=== PATIENT | female | born 1985 | race Caucasian/White ===

== ENCOUNTER → 2018-08-04 | Outpatient (CLI) | payer OTHER, MEDICAID ==
[2016-03-12 14:57] VITALS: BP 139/75
[~2018-08-04] MED LIST: ALPR0.5T6 PO; DIVA500T2 PO; TRAM50TA PO
--- NOTE | 2018-08-04 15:52 | KCIC ---
EXAM: Pelvis and left hip, 3 views; right elbow, 3 views. HISTORY: Pain. COMPARISON: None. FINDINGS: Pelvis and left hip: A frontal view the pelvis and frontal and frog-leg views left hip are obtained. There is no fracture, dislocation or subluxation. The left femoral head is normal in configuration and seated appropriately. Right elbow: 3 views of the right elbow are obtained. There is no fracture, dislocation or subluxation. There is no joint effusion. IMPRESSION: No acute osseous finding. Electronically signed by: Brooklyn Klein MD (08/04/2018 3:49 PM) [place] [id number]
== END | disposition home or self-care (01) ==
LOC: KCIC 15:05
PROVIDERS: ATTEND Nurse Practitioner Family
DX: M25.552 Pain in left hip (principal); M25.521 Pain in right elbow
CPT/HCPCS: 73080; 73502

== ENCOUNTER → 2019-02-08 | Outpatient (CLI) | payer OTHER, MEDICAID ==
[2016-03-12 14:57] VITALS: BP 139/75
--- NOTE | 2019-02-08 14:26 | KCIC ---
Bilateral diagnostic digital mammograms: Reason for examination: Follow-up breast nodules. Comparison is made to previous study dated 08/07/2018. Interpretation was made with the benefit of CAD. The skin and nipples show no abnormalities. No abnormal axillary lymph nodes are seen. The breast parenchyma is heterogeneously dense. (Breast density: Category C.) There continues to be a nodular density in the 2:00 B position of the right breast. There are no other dominant masses, suspicious calcifications or architectural distortion. Impression: Continued presence of the small nodule at the 2:00 B position of the right breast. No definite nodule seen in the left breast. If left nipple discharge persists, further evaluation with galactography should be considered. Right breast ultrasound: Comparison is made to previous study dated 08/12/2018. Ultrasound examination was performed in the areas of previous concern and the axilla. At the 2:00 position 6 cm from the nipple, there continues to be septated cystic lesion measuring 8.4 mm in greatest dimension which shows a slight increase in size. There is a small 3.5 mm hypoechoic fibrocystic type lesion in the 2:00 position 4 cm from the nipple which is also probably slightly larger than on previous exam. There also continues to be a septated cystic lesion at the 10:00 position 5 cm from the nipple measuring 1 cm in greatest dimension which shows no significant change. There are no new cystic or solid nodules. No abnormal appearing lymph nodes are seen in the axilla. IMPRESSION: Continued presence of benign-appearing fibrocystic lesions at the 2:00 and 10:00 positions. Recommend continued 6 month sonographic follow-up at the time of bilateral mammograms. Your patient's mammogram demonstrates that she has dense breast tissue (breast density category C or D), which could hide abnormalities, and if she has other risk factors for breast cancer that have been identified, she might benefit from supplemental screening tests that may be suggested by you as her ordering physician. Dense breast tissue, in and of itself, is a relatively common condition. Therefore, this information is not provided to cause undue concern, but rather to raise your awareness and to promote discussion with your patient regarding the presence of other risk factors, in addition to dense breast tissue. Your patient's mammography results will be sent to her. BI-RAD Category 3: Probably benign. "Our facility is accredited by the [employer] Mammography Program." This patient's information has been entered into a reminder system for the patient to be notified with the results of her examination and a target date for the next mammogram. Electronically signed by: Lesvia Dowling MD (02/08/2019 2:23 PM) [id number]
== END | disposition home or self-care (01) ==
LOC: KCIC MAMMO 12:44
PROVIDERS: ATTEND Nurse Practitioner Family
DX: N64.52 Nipple discharge (principal); R92.2 Inconclusive mammogram
CPT/HCPCS: 76641; 77066

== ENCOUNTER → 2019-05-27 | Outpatient (CLI) | payer OTHER, MEDICAID ==
[2016-03-12 14:57] VITALS: BP 139/75
--- NOTE | 2019-05-27 13:34 | KCIC ---
EXAM: Abdomen sonogram. HISTORY: Right upper quadrant pain. TECHNIQUE: Sonographic imaging of the abdomen was performed. COMPARISON: None. FINDINGS: The liver is normal in size. There is hepatic steatosis. No focal hepatic lesion is seen. The common bile duct is normal in caliber. The gallbladder is unremarkable. The right kidney is unremarkable. The pancreatic tail, inferior vena cava and aorta are are partially obscured due to bowel gas. IMPRESSION: 1. Hepatic steatosis. 2. Partially obscured midline structures due to bowel gas. Electronically signed by: Brooklyn Klein MD (05/27/2019 1:31 PM) [facility]
== END | disposition home or self-care (01) ==
LOC: KCIC US 12:44
PROVIDERS: ATTEND Nurse Practitioner Family
DX: K76.0 Fatty (change of) liver, not elsewhere classified (principal)
CPT/HCPCS: 76705

== ENCOUNTER → 2019-07-16 | Outpatient (CLI) | payer MEDICARE, MEDICAID ==
[2016-03-12 14:57] VITALS: BP 139/75
--- NOTE | 2019-07-16 13:00 | KCIC ---
Right breast ultrasound: Reason for examination: Follow-up nodules. Comparison is made to previous studies dated 02/08/2019 and 08/12/2018. Ultrasound examination of the right breast and axilla was performed. At the 10:00 position 5 cm from the nipple, there continues to be 9.5 mm hypoechoic fibrocystic lesion which has shown a slight decrease in size. At the 2:00 position 6 cm from the nipple, there continues to be 6.5 mm hypoechoic fibrocystic lesion which is stable. At the 2:00 position 4 cm from the nipple, there continues to be a small 4 mm fibrocystic lesion which is stable. No suspicious-appearing nodules are seen. No abnormal appearing lymph nodes are seen in the axilla. IMPRESSION: Continued presence of benign-appearing fibrocystic lesions which are stable. No suspicious lesions are seen. Recommend routine mammographic follow-up. BI-RADS Category 2: Benign. "Our facility is accredited by the [employer] Mammography Program." This patient's information has been entered into a reminder system for the patient to be notified with the results of her examination and a target date for the next mammogram. Electronically signed by: Lesvia Dowling MD (07/16/2019 12:57 PM) [id number]
== END | disposition home or self-care (01) ==
LOC: KCIC US 09:03
PROVIDERS: ATTEND Nurse Practitioner Family
DX: N64.89 Other specified disorders of breast (principal)
CPT/HCPCS: 76641

== ENCOUNTER → 2019-11-10 | Outpatient (CLI) | payer MEDICARE, MEDICAID ==
[2016-03-12 14:57] VITALS: BP 139/75
--- NOTE | 2019-11-10 18:06 | CARD ---
MR#: [id number] Date of Study: 11/10/2019 Ordering Physician: JANELLE SIDHU, Referring Physician: JANELLE SIDHU, Tech: April Shelley APPROVED REPORT INDICATION Chest Pain RISK FACTORS Smoking Reason : Patient complained of pain PROCEDURE The patient underwent an Exercise Stress Test using the Carter Protocol. Blood pressure, heart rate, a nd EKG were monitored. An Echocardiogram was performed by screening technician in four stages in quad fashion. At peak stress four se lected images were obtained and placed side by side with resting images for comparison. STRESS ECHO FINDINGS The resting Echocardiogram showed normal left ventricular systolic contractility with an estimated Ej ection Fraction of about 55 %. The Resting Echocardiogram showed normal augmentation of myocardial wall segments using a 16 segment model. The Stress Echocardiogram showed normal augmentation of myocardial wall segments using a 16 segment m carmel. The Stress Echocardiogram left ventricular systolic contractility has an estimated Ejection Fraction of about 70%. Test Type: Exercise Stress Nurse/Tech: Ninoska Little RN Test Indications: Chest pain Cardiac History and Allergies: Family history,smoker Medications: see EMR Medical History: see EMR Resting ECG: SR Resting Heart Rate: 77 bpm Resting Blood Pressure: 115/61mmHg Pretest Chest Pain: Atypical anginaTypical angina Nurse/Tech Notes S1,S2 and lungs clear to auscultation. Stress Symptoms Dyspnea,Fatigue, patient stated she has persistent chest pressure/tightness and "heart hiccups" (best way she can describe it). POST EXERCISE Reason for Termination: Reached target heart rate, Fatigue Target HR: Yes Max HR: 185 bpm 101% of Maximum Predicted HR: 184 bpm Exercise duration: 5:53 min:sec, Stage Exercise capacity: 7.0METs Max Blood Pressure: 152/53mmHg Blood Pressure response to exercise: Normal blood pressure response during stress. Heart Rate response to exercise: WNL Chest Pain: Yes. see note above Arrhythmia: No. ST Change: Yes. ST changes in II,III,aVF and V3-V6 with stress which returned to baseline by end of s tudy STRESS ECG Stress EKG shows no significant changes. Preliminary Notification Critical Value: No <Conclusion> Normal resting EKG Normal stress EKG Adequate exercise capacity at 7.0 Mets Normal resting echocardiogram EF 55% Normal stress echocardiogram. EF > 70% Signed by : Federico Rao, Electronically Approved : 11/10/2019 18:06:29
== END | disposition home or self-care (01) ==
LOC: ECHO 12:59
PROVIDERS: ATTEND Internal Medicine Cardiovascular Disease
DX: R07.9 Chest pain, unspecified (principal)
CPT/HCPCS: 93017; 93350

== ENCOUNTER → 2020-04-26 | Outpatient (CLI) | payer MEDICARE, MEDICAID ==
[2016-03-12 14:57] VITALS: BP 139/75
--- NOTE | 2020-04-26 10:11 | RAD ---
Examination: MG DIGITAL BILAT DIAGNOSTIC MAMMO WITH ALYSE History: RIGHT BREAST NODULE described on previous exam. No new palpable abnormality in the past one year. Comparison/Correlation: 02/08/2019, 08/07/2018 Technique: Bilateral digital diagnostic mammogram views were obtained. CAD was utilized. 3-D tomosyn thesis images were acquired. Findings: Breast Tissue Density C : The breasts are heterogeneously dense, which may obscure small masses. There are no dominant masses, suspicious microcalcifications, or architectural distortion. Mass at t he inner aspect of the right breast corresponding to previously demonstrated cyst on ultrasound exams is stable. No new findings in the interval. IMPRESSION: No mammographic evidence of malignancy. Recommend routine screening. Patient reports having a sister diagnosed with breast cancer at age of 37. If the patient has lifetime risk of greater than 20 percen t, annual screening MRI of the breasts beginning 6 months from now would be recommended if able. BI-RADS category 1: Negative. The images were reviewed with computer aided detection. Patient information is entered into the reminder system with a target due date for the next screening mammogram. Mammography is the most sensitive method for finding small breast cancers, but it does not detect the m all and is not a substitute for careful clinical examination. A negative mammogram does not negate a clinically suspicious finding and should not result in delay in biopsying a clinically suspicious a bnormality. "Our facility is accredited by the [employer] Mammography Program." Electronically signed by: Jose House MD (04/26/2020 10:08 AM) [email or web address]
== END ==
LOC: MAMMO 08:58
PROVIDERS: ATTEND Nurse Practitioner Family
DX: R92.2 Inconclusive mammogram (principal); N63.10 Unspecified lump in the right breast, unspecified quadrant
CPT/HCPCS: 77066; G0279; 77062

== ENCOUNTER → 2020-06-14 | Outpatient (CLI) | payer MEDICARE, MEDICAID ==
[2016-03-12 14:57] VITALS: BP 139/75
--- NOTE | 2020-06-14 09:19 | KCIC ---
Study: XR CHEST 2V Indication: Shortness of air. Comparison: None. Findings: PA and lateral radiographic views of the chest. The cardiomediastinal silhouette is unremarkable. Symmetric girish. No confluent airspace infiltrate, p leural effusion or pneumothorax. Within normal limits lung volumes, AP dimension of the chest on the lateral view and convexity of the diaphragm. Grossly intact osseous structures. No free air under the diaphragm. Impression: Unremarkable radiographic appearance of the chest. Electronically signed by: CHRISTIANA NIXON MD (06/14/2020 9:17 AM) [id number]
== END ==
LOC: KCIC 08:53
PROVIDERS: ATTEND Nurse Practitioner Family
DX: R06.02 Shortness of breath (principal); F17.200 Nicotine dependence, unspecified, uncomplicated; Z82.5 Family history of asthma and other chronic lower respiratory diseases
CPT/HCPCS: 71046

== ENCOUNTER 2021-03-18 06:10 | Emergency (ER) | payer MEDICARE, MEDICAID ==
[~2021-03-18] VITALS: Ht 154.9 cm; Wt 81.8 kg
--- NOTE | 2021-03-18 07:02 | ED.ADGEN ---
Past Medical History Past Medical History: Anxiety, Bipolar, Seizure Past Surgical History: Hysterectomy Smoking Status: Former Smoker Alcohol Use: None Drug Use: None General Adult EDM: Chief Complaint: NECK PAIN HPI: HPI: Patient is a 36 year old female coming in from home for right-sided neck pain. Patient that she was sleeping on her back when she woke up and felt like there had been a pop but had severe right-sided neck pain. Denies any trauma or history of previous episodes. Took ibuprofen prior to arrival. Denies any weakness or paresthesias in right arm. Chest pain is worst at the upper part of the posterior right side of her neck Review of Systems: Review of Systems: All other systems within normal limits except for as noted in the HPI Current Medications: Current Medications Medications (Trade) Dose Ordered Sig/Oxana Start Time Stop Time Status Last Admin Dose Admin Fentanyl Citrate (Fentanyl 2ml Vial) 75 mcg 1X ONCE 03/18/21 07:15 03/18/21 07:16 DC 03/18/21 08:00 75 MCG Iohexol (Omnipaque 300 Mg/ml) 75 ml 1X ONCE 03/18/21 07:15 03/18/21 07:16 DC 03/18/21 08:22 75 ML Allergies: Allergies: Allergies Coded Allergies Type Severity Reaction Last Updated Verified No Known Drug Allergies 01/08/16 No Physical Exam: PE: Constitutional: Well developed, well nourished, no acute distress, non-toxic appearance. [] HENT: Normocephalic, atraumatic, bilateral external ears normal, oropharynx moist, no oral exudates, nose normal. [] Eyes: PERRLA, EOMI, conjunctiva normal, no discharge. [] Neck: Normal range of motion, no tenderness, supple, no stridor. [] Cardiovascular:Heart rate regular rhythm, no murmur [] Lungs & Thorax: Bilateral breath sounds clear to auscultation [] Abdomen: Bowel sounds normal, soft, no tenderness, no masses, no pulsatile masses. [] Skin: Warm, dry, no erythema, no rash. [] Back: No tenderness, no CVA tenderness. [] Extremities: No tenderness, no cyanosis, no clubbing, ROM intact, no edema. [] Neurologic: Alert and oriented X 3, normal motor function, normal sensory function, no focal deficits noted. [] Psychologic: Affect normal, judgement normal, mood normal. [] Current Patient Data: Labs: Laboratory Tests Test 03/18/21 07:50 White Blood Count 6.4 x10^3/uL (4.0-11.0) Red Blood Count 4.45 x10^6/uL (3.50-5.40) Hemoglobin 13.4 g/dL (12.0-15.5) Hematocrit 39.5 % (36.0-47.0) Mean Corpuscular Volume 89 fL (79-100) Mean Corpuscular Hemoglobin 30 pg (25-35) Mean Corpuscular Hemoglobin Concent 34 g/dL (31-37) Red Cell Distribution Width 14.0 % (11.5-14.5) Platelet Count 302 x10^3/uL (140-400) Neutrophils (%) (Auto) 78 % (31-73) H Lymphocytes (%) (Auto) 13 % (24-48) L Monocytes (%) (Auto) 8 % (0-9) Eosinophils (%) (Auto) 0 % (0-3) Basophils (%) (Auto) 0 % (0-3) Neutrophils # (Auto) 5.0 x10^3/uL (1.8-7.7) Lymphocytes # (Auto) 0.9 x10^3/uL (1.0-4.8) L Monocytes # (Auto) 0.5 x10^3/uL (0.0-1.1) Eosinophils # (Auto) 0.0 x10^3/uL (0.0-0.7) Basophils # (Auto) 0.0 x10^3/uL (0.0-0.2) Sodium Level 137 mmol/L (136-145) Potassium Level 4.2 mmol/L (3.5-5.1) Chloride Level 103 mmol/L (98-107) Carbon Dioxide Level 23 mmol/L (21-32) Anion Gap 11 (6-14) Blood Urea Nitrogen 8 mg/dL (7-20) Creatinine 0.6 mg/dL (0.6-1.0) Estimated GFR (Cockcroft-Gault) 111.9 BUN/Creatinine Ratio 13 (6-20) Glucose Level 108 mg/dL (70-99) H Calcium Level 8.2 mg/dL (8.5-10.1) L Total Bilirubin 0.2 mg/dL (0.2-1.0) Aspartate Amino Transferase (AST) 18 U/L (15-37) Alanine Aminotransferase (ALT) 25 U/L (14-59) Alkaline Phosphatase 98 U/L (46-116) Total Protein 7.7 g/dL (6.4-8.2) Albumin 3.7 g/dL (3.4-5.0) Albumin/Globulin Ratio 0.9 (1.0-1.7) L Laboratory Tests 03/18/21 07:50 Laboratory Tests 03/18/21 07:50 Vital Signs: Vital Signs Date Time Temp Pulse Resp B/P (MAP) Pulse Ox O2 Delivery O2 Flow Rate FiO2 03/18/21 08:00 16 97 Room Air 03/18/21 06:38 98.2 95 135/90 (105) 98.2 EKG: EKG: [] Heart Score: C/O Chest Pain: No Risk Factors: Risk Factors: DM, Current or recent (<one month) smoker, HTN, HLP, family history of CAD, obesity. Risk Scores: Score 0 - 3: 2.5% MACE over next 6 weeks - Discharge Home Score 4 - 6: 20.3% MACE over next 6 weeks - Admit for Clinical Observation Score 7 - 10: 72.7% MACE over next 6 weeks - Early Invasive Strategies Radiology/Procedures: Radiology/Procedures: [facility] [address] [place] [address] IMAGING REPORT Signed PATIENT: ANDREW FELDMAN ACCOUNT: [id number] : 1985 LOCATION: ER AGE: 36 SEX: F EXAM STATUS: REG ER ORD. PHYSICIAN: ANDREW YOUNG MD REASON: right neck pain PROCEDURE: CT ANGIOGRAPHY NECK INDICATION: Reason: right neck pain / Spl. Instructions: / History: COMPARISON: None. TECHNIQUE: Axial CT images obtained through the neck arterial vasculature with intravenous contrast. 3D images were processed per protocol. Estimates of carotid stenosis based on criteria that correlates with NASCET. One or more of the following individualized dose reduction techniques were utilized for this examination: 1. Automated exposure control; 2. Adjustment of the mA and/or kV according to patient size; 3. Use of iterative reconstruction technique. FINDINGS: Neck Angio: No significant malalignment within the cervical spine. No prevertebral fluid collection. Epiglottis is not enlarged. Mild wedging of the T1 vertebral body. Mild degenerative changes spine. Bilateral vertebral arteries are patent. Dominant left vertebral artery. There are some scattered prominent lymph nodes in the neck. For example anterior to the internal carotid artery at the C2-3 level measuring approximately 10 x 12 mm. There are several additional scattered prominent lymph nodes. Bilateral common and internal carotid arteries are patent. Proximal external carotid arteries are patent. IMPRESSION: Patent vertebral and carotid system bilaterally. Scattered prominent lymph nodes within the neck. Electronically signed by: Jennifer Curiel MD (03/18/2021 8:47 AM) [id number] DICTATED and SIGNED BY: JENNIFER CURIEL MD DATE: 03/18/21 [id number] [] Course & Med Decision Making: Course & Med Decision Making Pertinent Labs and Imaging studies reviewed. (See chart for details) [] Dragon Disclaimer: Dragon Disclaimer: This electronic medical record was generated, in whole or in part, using a voice recognition dictation system. Departure Departure Impression: Primary Impression: Neck pain Disposition: HOME / SELF CARE / HOMELESS Condition: STABLE Referrals: GANESH LEPE APRN (PCP) Patient Instructions: Muscle Cramps, [id number] Scripts Cyclobenzaprine Hcl (CYCLOBENZAPRINE HCL) 10 Mg Tablet 1 TAB PO TID PRN for MUSCLE PAIN for 5 Days, #15 TAB Prov: ANDREW YOUNG MD 03/18/21 Meloxicam (MELOXICAM) 15 Mg Tablet 1 TAB PO DAILY PRN for PAIN for 10 Days, #10 TAB 0 Refills Prov: ANDREW YOUNG MD 03/18/21 ANDREW YOUNG MD Mar 18, 2021 07:02
[2021-03-18] MEDS ORDERED: fentaNYL PF VIAL 100 MCG/2 ML VIAL IVP ONE (07:15)
[2021-03-18] MEDS ORDERED: IOHEXOL 300 MG/ML 100ML VIAL. IV ONE (07:15)
[2021-03-18 08:19] LABS: CALCIUM 8.2 mg/dL (8.5-10.1); CREATININE 0.6 mg/dL (0.6-1.0); GFR 111.9; POTASSIUM 4.2 mmol/L (3.5-5.1)
[2021-03-18 08:20] LABS: BASO % 0 % (0-3); EOS % 0 % (0-3); HEMATOCRIT 39.5 % (36.0-47.0); HEMOGLOBIN 13.4 g/dL (12.0-15.5); LYMPH # 0.9 x10^3/uL (1.0-4.8); LYMPH % 13 % (24-48); MEAN CORPUSCULAR HEMOGLOBIN 30 pg (25-35); MEAN CORPUSCULAR HGB CONC 34 g/dL (31-37); MEAN CORPUSCULAR VOLUME 89 fL (79-100); MONO # 0.5 x10^3/uL (0.0-1.1); MONO % 8 % (0-9); NEUT % 78 % (31-73); PLATELET COUNT 302 x10^3/uL (140-400); RED BLOOD COUNT 4.45 x10^6/uL (3.50-5.40); WHITE BLOOD COUNT 6.4 x10^3/uL (4.0-11.0)
[2021-03-18 08:24] LABS: ALBUMIN 3.7 g/dL (3.4-5.0); ALBUMIN/GLOBULIN RATIO 0.9 (1.0-1.7); TOTAL BILIRUBIN 0.2 mg/dL (0.2-1.0); TOTAL PROTEIN 7.7 g/dL (6.4-8.2)
--- NOTE | 2021-03-18 08:50 | RAD ---
INDICATION: Reason: right neck pain / Spl. Instructions: / History: COMPARISON: None. TECHNIQUE: Axial CT images obtained through the neck arterial vasculature with intravenous contrast. 3D images were processed per protocol. Estimates of carotid stenosis based on criteria that correlates with NASCET. One or more of the following individualized dose reduction techniques were utilized for this examinat ion: 1. Automated exposure control; 2. Adjustment of the mA and/or kV according to patient size; 3 . Use of iterative reconstruction technique. FINDINGS: Neck Angio: No significant malalignment within the cervical spine. No prevertebral fluid collection. Epiglottis is not enlarged. Mild wedging of the T1 vertebral body. Mild degenerative changes spine. Bilateral vertebral arteries are patent. Dominant left vertebral artery. There are some scattered prominent lymph nodes in the neck. For example anterior to the internal waterman tid artery at the C2-3 level measuring approximately 10 x 12 mm. There are several additional scatter ed prominent lymph nodes. Bilateral common and internal carotid arteries are patent. Proximal external carotid arteries are patent. IMPRESSION: Patent vertebral and carotid system bilaterally. Scattered prominent lymph nodes within the neck. Electronically signed by: Francisco Gomez MD (03/18/2021 8:47 AM) [id number]
[2021-03-18] MEDS ORDERED: ORPHENADRINE CITRATE 60 MG/2 ML VIAL. IM ONE (09:00)
[2021-03-18] MEDS ORDERED: MELO15TA23 PO (09:00)
[2021-03-18] MEDS ORDERED: KETOROLAC 15 MG/ML VIAL. IVP ONE (09:00)
[2021-03-18] MEDS ORDERED: CYCL10TA19 PO (09:00)
[2021-03-18 09:24] VITALS: BP 116/71
== END 2021-03-18 09:38 | disposition home or self-care (01) ==
LOC: ER 06:10
DX: M54.2 Cervicalgia (principal); F31.9 Bipolar disorder, unspecified; Z87.891 Personal history of nicotine dependence
CPT/HCPCS: 36415; 70498; 80053; 85025; 96372; 96374; 96375; 99285; J1885; J2360; J3010; Q9967; 99284-25

== ENCOUNTER → 2021-05-01 | Outpatient (CLI) | payer MEDICARE, MEDICAID ==
[~2021-05-01] MED LIST changes: +CYCL10TA19 PO; +MELO15TA23 PO
--- NOTE | 2021-05-01 11:19 | RAD ---
INDICATION: 36 years of age asymptomatic female patient presents for screening mammography. . TECHNIQUE: Full field craniocaudal and mediolateral oblique images of both breasts were obtained usi ng digital technique with tomosynthesis and also analyzed with computer-aided detection software. . COMPARISON: 08/07/2018 04/26/2020 .. BREAST COMPOSITION: Category C: The breast tissue is heterogeneously dense, which could obscure detec tion of small masses. FINDINGS: No suspicious mass or clustered microcalcifications. No architectural distortion. There is a small ci rcumscribed nodule in the medial aspect of the right breast, unchanged. IMPRESSION: Stable bilateral mammogram. RECOMMENDATION: Annual screening mammography is recommended, unless clinically indicated sooner based on symptoms or change in physical exam. BIRADS 2: BENIGN This study was interpreted with the benefit of Computerized Aided Detection (CAD). Routine screening in one year. Patient information is entered into the reminder system with a target due date for the next screening mammogram. Mammography is the most sensitive method for finding small breast cancers, but it does not detect the m all and is not a substitute for careful clinical examination. A negative mammogram does not negate a clinically suspicious finding and should not result in delay in biopsying a clinically suspicious a bnormality. "Our facility is accredited by the [employer] Mammography Program." Electronically signed by: Justo Chen MD (05/01/2021 11:16 AM) [email or web address]
== END ==
LOC: MAMMO 09:40
PROVIDERS: ATTEND Nurse Practitioner Family
DX: Z12.31 Encounter for screening mammogram for malignant neoplasm of breast (principal)
CPT/HCPCS: 77063; 77067